=== PATIENT | male | born 1985 | race African-American/Black ===

== ENCOUNTER 2020-07-07 23:46 | Emergency (ER) | payer SELFPAY ==
[~2020-07-07] VITALS: Ht 170.2 cm; Wt 64.0 kg
[2020-07-08] MEDS ORDERED: KETOROLAC 30MG/ML VIAL IM STA (00:05)
[2020-07-08] MEDS ORDERED: FAMOTIDINE 20MG TABLET PO ONE (00:15)
[2020-07-08 00:55] LABS: CHLORIDE 108 mEq/L (98-107)
[2020-07-08 01:02] LABS: ETHANOL BLOOD 133 mg/dL
[2020-07-08 01:05] LABS: BASOPHILS % 0.6 % (0.0-2.0); EOSINOPHILS % 1.7 % (0.0-5.0); HEMATOCRIT. 38.9 % (42.0-52.0); HEMOGLOBIN. 13.4 g/dL (14.0-18.0); LYMPHOCYTES % 31.4 % (20.0-50.0); MEAN CORPUSCULAR HEMOGLOBIN 33.9 pg (28.0-32.0); MEAN CORPUSCULAR VOLUME 98.3 fL (80.0-94.0); MEAN PLATELET VOLUME 8.7 fl (7.4-10.4); MONOCYTES % 8.8 % (2.0-8.0); NEUTROPHILS % 57.5 % (40.0-76.0); PLATELET 209 x1000/uL (130-400); RED BLOOD CELL COUNT 3.95 mill/uL (4.7-6.1); RED CELL DISTRIBUTION WIDTH 12.9 % (11.6-14.6)
[2020-07-08] MEDS ORDERED: POTASSIUM CHLORIDE 20MEQ TABLET SR PO ONE (01:15)
[2020-07-08 02:07] VITALS: BP 150/81
== END 2020-07-08 02:09 | disposition home or self-care (01) ==
LOC: ER 23:46
DX: R07.9 Chest pain, unspecified (principal)
CPT/HCPCS: 36415; 71045; 80053; 80320; 83690; 85025; 93005; 96372; 99285; J1885; G0480

== ENCOUNTER 2021-01-27 20:59 | Emergency (ER) | payer MEDICAID ==
[~2021-01-27] VITALS: Ht 170.2 cm; Wt 62.0 kg
[2021-01-27] MEDS ORDERED: TETANUS, DIPHTHERIA, PERTUSSIS VAC/PF 0.5ML (>7YR OLD) IM ONE (22:45)
[2021-01-27] MEDS ORDERED: BACITRACIN ZINC OINT UDPKT TOP ONE (22:45)
[2021-01-27] MEDS ORDERED: IBUPROFEN 600MG TABLET PO ONE (22:45)
[2021-01-27] MEDS ORDERED: LIDOCAINE HCL/PF 1% 10 MG/ML 5ML VIAL IJ ONE (22:45)
[2021-01-27 23:45] VITALS: BP 127/84
[2021-01-28] MEDS ORDERED: LIDOCAINE HCL/PF 1% 10 MG/ML 5ML VIAL IJ ONE (00:15)
[2021-01-28] MEDS ORDERED: IBUP-2029 MT (00:35)
[2021-01-28] MEDS ORDERED: BO1 TP (00:35)
== END 2021-01-28 00:40 | disposition home or self-care (01) ==
LOC: ER 20:59
DX: S61.412A Laceration without foreign body of left hand, initial encounter (principal); W26.8XXA Contact with other sharp object(s), not elsewhere classified, initial encounter; Y93.9 Activity, unspecified; Y92.9 Unspecified place or not applicable
CPT/HCPCS: 12002; 90471; 90715; 99283; A4217; J3490; Z7610